=== PATIENT | male | born 1995 | race Caucasian/White ===

== ENCOUNTER 2020-09-12 13:59 | Observation (INO) | payer OTHER ==
[2020-09-12 14:23] LABS: Basophils % (A) 0 %; Eosinophils # (A) 0.3 k/uL (0-0.7); Eosinophils % (A) 3 %; HGB 16.1 gm/dL (13.0-17.5); Lymphocytes # (A) 0.9 k/uL (1.0-4.8); Lymphocytes % (A) 8 %; MCH 30.4 pg (25.0-35.0); MCHC 34.9 g/dL (31.0-37.0); MCV 86.9 fL (80.0-100.0); Mean Platelet Volume 7.3; Monocytes # (A) 0.8 k/uL (0-1.0); Monocytes % (A) 7 %; Neutrophils % (A) 81 %; Platelet Count 218 k/uL (150-450); WBC 11.1 k/uL (3.8-10.6)
[2020-09-12 14:37] LABS: Albumin 5.1 g/dL (3.5-5.0); Glucose 118 mg/dL (74-99); Total Protein 8.2 g/dL (6.3-8.2)
[2020-09-12 14:38] LABS: ALT 39 U/L (4-49); AST 28 U/L (17-59); African American GFR (CKD) >90 (>60 ml/min/1.73 sqM); Alkaline Phosphatase 70 U/L (38-126); Anion Gap 15 mmol/L; Blood Urea Nitrogen 8 mg/dL (9-20); Calcium 9.7 mg/dL (8.4-10.2); Carbon Dioxide 24 mmol/L (22-30); Chloride 104 mmol/L (98-107); Creatine Kinase 104 U/L (55-170); Magnesium 1.5 mg/dL (1.6-2.3); Non-African American GFR(CKD) >90 (>60 ml/min/1.73 sqM); Potassium 3.5 mmol/L (3.5-5.1); Sodium 143 mmol/L (137-145); Total Bilirubin 0.8 mg/dL (0.2-1.3)
[2020-09-12 14:43] LABS: D-Dimer 0.38 mg/L FEU (<0.60)
[2020-09-12 14:44] LABS: Partial Thromboplastin Time 24.7 sec (22.0-30.0); Prothrombin Time 10.3 sec (9.0-12.0)
--- NOTE | 2020-09-12 15:06 | XR ---
EXAMINATION TYPE: XR chest 1V portable DATE OF EXAM: 09/12/2020 COMPARISON: NONE HISTORY: Dyspnea TECHNIQUE: Single frontal view of the chest is obtained. FINDINGS: There are changes of pneumomediastinum. Air is present subcutaneous soft tissues over the upper chest and lower neck as well as in the mediastinum. There is no evident pneumothorax or pleural effusion. Cardiac mediastinal silhouette otherwise within normal limits. IMPRESSION: Pneumomediastinum.
[2020-09-12] MEDS ORDERED: cefTRIAXone IN SWFI 1,000 MG/10 ML SYRINGE IVP STA (15:17)
--- NOTE | 2020-09-12 15:36 | ED ---
SOB HPI - General Chief Complaint: Shortness of Breath Stated Complaint: trauma Time Seen by Provider: 09/12/20 14:00 Source: patient, EMS, RN notes reviewed Mode of arrival: EMS Limitations: no limitations - History of Present Illness Initial Comments: Is a 25-year-old male with a benign history other than asthma who states he had the onset of difficulty breathing last evening consistent with his usual asthma he states that prior to arrival by EMS however he coughed really hard and felt as if there was a water up in the left upper side of his anterior chest. He has some difficulty breathing along with this. No difficulty swallowing he's had fevers and sweats last night he states. No earache sore throat possibly some nasal congestion. No phlegm production when he coughed . He's never had anything quite like this before he is a nonsmoker no other medical problems. MD Complaint: shortness of breath, cough - Related Data Home Medications Medication Instructions Recorded Confirmed Albuterol Inhaler [Ventolin Hfa 1 - 2 puff INHALATION RT-Q4H PRN 09/12/20 09/12/20 Inhaler] guaiFENesin [Mucinex] 600 mg PO Q12H PRN 09/12/20 09/12/20 Allergies Allergy/AdvReac Type Severity Reaction Status Date / Time No Known Allergies Allergy Verified 09/12/20 14:44 Review of Systems ROS Statement: Those systems with pertinent positive or pertinent negative responses have been documented in the HPI. ROS Other: All systems not noted in ROS Statement are negative. Past Medical History Past Medical History: Asthma History of Any Multi-Drug Resistant Organisms: None Reported Past Surgical History: Adenoidectomy Additional Past Surgical History / Comment(s): Ankel and monahan surgery on 2019 Past Psychological History: No Psychological Hx Reported Smoking Status: Former smoker Past Alcohol Use History: None Reported Past Drug Use History: Marijuana General Exam - General Exam Comments Initial Comments: Is a well-developed asthenic appearing male who is awake alert oriented 3 Limitations: no limitations General appearance: alert, anxious Head exam: Present: atraumatic, normocephalic, normal inspection Eye exam: Present: normal appearance, PERRL, EOMI. Absent: scleral icterus, conjunctival injection, periorbital swelling ENT exam: Present: normal exam, mucous membranes moist, other (Evidence of somewhat of a higher pitched voice with nasal qualities) Neck exam: Present: normal inspection, full ROM, other (No stridor JVD or bruits there is however crepitation over the anterior lateral neck musculature consistent with subcutaneous emphysema.). Absent: tenderness, meningismus, lymphadenopathy Respiratory exam: Present: chest wall tenderness (Some minimal discomfort to palpation of the anterior upper left chest wall with some subcutaneous emphysema clinically evident. None currently on the right.), decreased breath sounds. Absent: respiratory distress, wheezes, rales, rhonchi, stridor Cardiovascular Exam: Present: normal rhythm, tachycardia, normal heart sounds. Absent: systolic murmur, diastolic murmur, rubs, gallop, clicks GI/Abdominal exam: Present: soft, normal bowel sounds. Absent: distended, tenderness, guarding, rebound, rigid Extremities exam: Present: normal inspection, full ROM, normal capillary refill. Absent: tenderness, pedal edema, joint swelling, calf tenderness Back exam: Present: normal inspection Neurological exam: Present: alert, oriented X3, CN II-XII intact Psychiatric exam: Present: normal affect, normal mood Skin exam: Present: warm, dry, intact, normal color. Absent: rash Course Vital Signs 09/12/20 09/12/20 09/12/20 14:05 14:19 15:09 Temperature 97.8 F Pulse Rate 119 H 119 H Respiratory 22 22 20 Rate Blood Pressure 135/94 119/94 O2 Sat by Pulse 98 95 Oximetry - Reevaluation(s) Reevaluation #1: 09/12/20 15:48 I did reevaluate patient several occasions he states he is more comfortable standing up but discomfort and breathing is getting no worse at this time. Reevaluation #2: 09/12/20 15:49 Patient denies smoking but he does Vape. He was cautioned about this Reevaluation #3: 09/12/20 15:50 Dr. Yepez as well as Dr. Moran did come the emergency department to see the patient. Medical Decision Making - Lab Data Result diagrams: 09/12/20 14:12 09/12/20 14:12 Lab Results 09/12/20 09/12/20 09/12/20 Range/Units 14:12 14:12 14:12 WBC 11.1 H (3.8-10.6) k/uL RBC 5.30 (4.30-5.90) m/uL Hgb 16.1 (13.0-17.5) gm/dL Hct 46.0 (39.0-53.0) % MCV 86.9 (80.0-100.0) fL MCH 30.4 (25.0-35.0) pg MCHC 34.9 (31.0-37.0) g/dL RDW 12.0 (11.5-15.5) % Plt Count 218 (150-450) k/uL MPV 7.3 Neutrophils % 81 % Lymphocytes % 8 % Monocytes % 7 % Eosinophils % 3 % Basophils % 0 % Neutrophils # 9.0 H (1.3-7.7) k/uL Lymphocytes # 0.9 L (1.0-4.8) k/uL Monocytes # 0.8 (0-1.0) k/uL Eosinophils # 0.3 (0-0.7) k/uL Basophils # 0.0 (0-0.2) k/uL PT 10.3 (9.0-12.0) sec INR 1.0 (<1.2) APTT 24.7 (22.0-30.0) sec D-Dimer 0.38 (<0.60) mg/L FEU Sodium 143 (137-145) mmol/L Potassium 3.5 (3.5-5.1) mmol/L Chloride 104 (98-107) mmol/L Carbon Dioxide 24 (22-30) mmol/L Anion Gap 15 mmol/L BUN 8 L (9-20) mg/dL Creatinine 0.87 (0.66-1.25) mg/dL Est GFR (CKD-EPI)AfAm >90 (>60 ml/min/1.73 sqM) Est GFR (CKD-EPI)NonAf >90 (>60 ml/min/1.73 sqM) Glucose 118 H (74-99) mg/dL Plasma Lactic Acid Gage (0.7-2.0) mmol/L Calcium 9.7 (8.4-10.2) mg/dL Magnesium 1.5 L (1.6-2.3) mg/dL Total Bilirubin 0.8 (0.2-1.3) mg/dL AST 28 (17-59) U/L ALT 39 (4-49) U/L Alkaline Phosphatase 70 (38-126) U/L Creatine Kinase 104 (55-170) U/L Troponin I (0.000-0.034) ng/mL NT-Pro-B Natriuret Pep pg/mL Total Protein 8.2 (6.3-8.2) g/dL Albumin 5.1 H (3.5-5.0) g/dL 09/12/20 09/12/20 09/12/20 Range/Units 14:12 14:12 14:12 WBC (3.8-10.6) k/uL RBC (4.30-5.90) m/uL Hgb (13.0-17.5) gm/dL Hct (39.0-53.0) % MCV (80.0-100.0) fL MCH (25.0-35.0) pg MCHC (31.0-37.0) g/dL RDW (11.5-15.5) % Plt Count (150-450) k/uL MPV Neutrophils % % Lymphocytes % % Monocytes % % Eosinophils % % Basophils % % Neutrophils # (1.3-7.7) k/uL Lymphocytes # (1.0-4.8) k/uL Monocytes # (0-1.0) k/uL Eosinophils # (0-0.7) k/uL Basophils # (0-0.2) k/uL PT (9.0-12.0) sec INR (<1.2) APTT (22.0-30.0) sec D-Dimer (<0.60) mg/L FEU Sodium (137-145) mmol/L Potassium (3.5-5.1) mmol/L Chloride (98-107) mmol/L Carbon Dioxide (22-30) mmol/L Anion Gap mmol/L BUN (9-20) mg/dL Creatinine (0.66-1.25) mg/dL Est GFR (CKD-EPI)AfAm (>60 ml/min/1.73 sqM) Est GFR (CKD-EPI)NonAf (>60 ml/min/1.73 sqM) Glucose (74-99) mg/dL Plasma Lactic Acid Gage 1.8 (0.7-2.0) mmol/L Calcium (8.4-10.2) mg/dL Magnesium (1.6-2.3) mg/dL Total Bilirubin (0.2-1.3) mg/dL AST (17-59) U/L ALT (4-49) U/L Alkaline Phosphatase (38-126) U/L Creatine Kinase (55-170) U/L Troponin I <0.012 (0.000-0.034) ng/mL NT-Pro-B Natriuret Pep 58 pg/mL Total Protein (6.3-8.2) g/dL Albumin (3.5-5.0) g/dL - Radiology Data Radiology results: report reviewed (I did review the imaging and reports subcu emphysema noted on both sides on the x-ray also a chest x-ray and CAT scan no evidence of pneumo-thorax at this time), image reviewed Critical Care Time Critical Care Time: Yes Total Critical Care Time: 37 Critical Care Time: This time does include initial presentation with history physical labs x-rays discussed with paramedics upon arrival were evaluation the patient responsive therapy discussion with the admitting physician as well as with Dr. Moran admission orders documentation the above Disposition Clinical Impression: Acute asthma exacerbation, Subcutaneous emphysema, Cough Disposition: ADMITTED IP TO THIS HOSP Condition: Fair Referrals: None,Stated [Primary Care Provider] - 1-2 days
--- NOTE | 2020-09-12 15:38 | CT ---
EXAMINATION TYPE: CT chest wo con DATE OF EXAM: 09/12/2020 COMPARISON: Chest x-ray from the same day. HISTORY: Coughing and shortness of breath. No traumatic injury per patient. CT DLP: 335.[address] of the chest was performed with lung and mediastinal window settings submitted. The la ck of contrast limits evaluation of the vascular, mediastinal and parenchymal structures including th e upper abdomen. LUNGS: The lungs are clear and free of infiltrate. No atelectasis. No pulmonary nodule or mass is de tected. No pleural effusion. No CT evidence of interstitial lung disease. MEDIASTINUM/LINDA: There is extensive pneumomediastinum with dissection into the neck and upper chest as well as the axillary regions and upper abdomen. There is no evidence for pneumothorax. Thoracic a philip is of normal caliber with limited evaluation given lack of contrast. The heart is not enlarged. No evidence for mediastinal mass. No lymph nodes greater than 1cm. UPPER ABDOMEN: No significant abnormality is seen. OTHER: No significant other abnormality. IMPRESSION: 1. Extensive pneumomediastinum as discussed above of uncertain etiology.
[2020-09-12] MEDS ORDERED: ONDANSETRON 4 MG/2 ML VIAL IVP PRN (15:53)
[2020-09-12] MEDS ORDERED: NALOXONE 0.4 MG/ML 1 ML VIAL IV PRN (15:53)
[2020-09-12] MEDS ORDERED: ACETAMINOPHEN TAB 325 MG TAB PO PRN (15:53)
[2020-09-12] MEDS ORDERED: guaiFENesin 600 MG TABLET.ER PO PRN (15:56)
[2020-09-12] MEDS: METOCLOPRAMIDE 5 MG/ML 2 ML VIAL IVP STA ×2 (15:59→16:01)
[2020-09-12] MEDS: methylPREDNISolone SOD SUCCI 125 MG/2 ML VIAL IV STA ×2 (16:00→16:01)
[2020-09-12] MEDS: SODIUM CHLORIDE 0.9% 1,000 ML IV SCH (16:02)
[2020-09-12] MEDS ORDERED: IPRATROPIUM-ALBUTEROL 3 ML NEB INHALATION STA (16:12)
--- NOTE | 2020-09-12 16:37 | P.CNPUL ---
History of Present Illness Consult date: 09/12/20 Reason for consult: dyspnea History of present illness: Is a 25-year-old male patient, his medical came into the emergency department having some worsening shortness of breath. He apparently was also having increased dyspnea on outpatient basis and he coughed hard and he felt air under his skin along the left neck area and this extended to the right. He came into the emergency department and chest x-ray showed no mediastinal and for clearance emphysema involving the neck area bilaterally. A CAT scan of the chest was ordered accordingly. Currently is on 2 L of oxygen by nasal cannula with a pulse of 98%. His breathing at the rate of 22 and he is afebrile. He is in sinus tachycardia. Note that his chest x-ray showed no evidence of any pneumothorax. The CAT scan of the chest showed extensive no mediastinal extending and dissecting into the neck and upper chest area and axillary region. There is no evidence of any pneumothorax. The patient admitted to smoke marijuana through a bong multiple times a day and he does deep inhalation. Doesn't utilize any tobacco.. He denies having any chest pain. His asthma has been essentially uneventful and the patient did not require any follow maintenance treatments or inhalers over the years. No previous hospitalization for asthma related complications. No other medical ALLERGIES. No pet ALLERGY. 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 Review of Systems Constitutional: Denies chills, Denies fever Eyes: denies as per HPI, denies blurred vision, denies bulging eye, denies decreased vision, denies diplopia, denies discharge, denies dry eye, denies irritation, denies itching, denies pain, denies photophobia, denies loss of peripheral vision, denies loss of vision, denies tunnel vision/blind spots Ears: deny: decreased hearing, ear discharge, earache, tinnitus Ears, nose, mouth and throat: Reports as per HPI Cardiovascular: Reports as per HPI, Reports decreased exercise tolerance Respiratory: Reports cough, Reports dyspnea, Reports wheezing Gastrointestinal: Reports as per HPI Genitourinary: Reports as per HPI Musculoskeletal: Reports as per HPI Musculoskeletal: absent: ankle pain, ankle stiffness, ankle swelling Integumentary: Reports as per HPI Neurological: Reports as per HPI Psychiatric: Reports as per HPI Endocrine: Reports as per HPI Hematologic/Lymphatic: Reports as per HPI Allergic/Immunologic: Reports as per HPI Past Medical History Past Medical History: Asthma History of Any Multi-Drug Resistant Organisms: None Reported Past Surgical History: Adenoidectomy Additional Past Surgical History / Comment(s): Ankel and monahan surgery on 2019 Past Psychological History: No Psychological Hx Reported Smoking Status: Former smoker Past Alcohol Use History: None Reported Past Drug Use History: Marijuana Medications and Allergies Home Medications Medication Instructions Recorded Confirmed Type RX: Albuterol Inhaler [Ventolin 1 - 2 puff INHALATION RT-Q4H PRN 09/12/2009/12 History Hfa Inhaler] guaiFENesin [Mucinex] 600 mg PO Q12H PRN 09/12/20 09/12/20 History Allergies Allergy/AdvReac Type Severity Reaction Status Date / Time No Known Allergies Allergy Verified 09/12/20 14:44 Physical Exam Vitals: Vital Signs Temp Pulse Resp BP Pulse Ox 09/12/20 14:19 22 09/12/20 14:05 97.8 F 119 H 22 135/94 98 Intake and Output 09/12/20 09/12/20 09/12/20 06:59 14:59 22:59 Other: Weight 81.647 kg The patient appeared well nourished and normally developed. Vital signs as documented. Head exam is unremarkable. No scleral icterus or corneal arcus noted. Neck is without jugular venous distension, thyromegaly, or carotid bruits. Carotid upstrokes are brisk bilaterally. There is some tenderness emphysema in the neck laterally both on the right than on the left side extending to his upper chest. Diminished breath sound bilaterally along with scattered expiratory wheezes without the lung cates bilaterally. Cardiac exam reveals the PMI to be normally sized and situated. Rhythm is regular. First and second heart sounds normal. No murmurs, rubs or gallops. Abdominal exam reveals normal bowel sounds, no masses, no organomegaly and no aortic enlargement. Extremities are nonedematous and both femoral and pedal pulses are normal.Examination of the skin revealed no evidence of significant rashes, suspicious appearing nevi or other concerning lesions.Neurologically, the patient is awake and alert and the patient does not have any focal neurological deficit. Cranial nerves are essentially intact. Results - Laboratory Findings CBC and BMP: 09/12/20 14:12 09/12/20 14:12 PT/INR, D-dimer PT 10.3 sec (9.0-12.0) 09/12/20 14:12 INR 1.0 (<1.2) 09/12/20 14:12 D-Dimer 0.38 mg/L FEU (<0.60) 09/12/20 14:12 Abnormal lab findings: Abnormal Labs 09/12/20 09/12/20 14:12 14:12 WBC 11.1 H Neutrophils # 9.0 H Lymphocytes # 0.9 L BUN 8 L Glucose 118 H Magnesium 1.5 L Albumin 5.1 H - Diagnostic Findings Chest x-ray: image reviewed CT scan - chest: image reviewed Assessment and Plan Plan: 1 acute asthma exacerbation 2 acute pneumomediastinum dissecting into the neck, upper chest, axilla, upper abdomen without evidence of pneumothorax. This is related to probably increase positive pressure within the thorax related to cough. 3 marijuana smoking 4 acute hypoxic respiratory failure currently on 2 L of oxygen by nasal cannula 5 sinus tachycardia Plan Admit to the floor Daily chest x-rays DuoNeb nebulized treatment every 6 hours [id number] Check Covid 19 by nasal swab IV Solu-Medrol IV Protonix Monitor the oxygenation Monitor subcutaneous emphysema and watch for development of any pneumothorax We'll continue to follow
[2020-09-12 17:24] LABS: Amphetamine Screen,Urine Not Detected (NotDetected); Barbiturate Screen,Urine Not Detected (NotDetected); Benzodiazepines Screen,Urine Not Detected (NotDetected); Cocaine Screen,Urine Not Detected (NotDetected); Methadone Screen, Urine Not Detected (NotDetected); Opiate Screen,Urine Not Detected (NotDetected); Oxycodone Screen, Urine Not Detected (NotDetected); Phencyclidine Screen,Urine Not Detected (NotDetected); Tricyclic Antidepressant,Urine Not Detected (NotDetected); Urn Cannabinoid Scrn Detected (NotDetected)
[2020-09-12] MEDS ORDERED: ALBUTEROL NEBULIZED 2.5 MG/3 ML INHALATION PRN (17:47)
--- NOTE | 2020-09-12 17:51 | P.HPIM ---
<Raul Montejo - Last Filed: 09/12/20 17:29> History of Present Illness H&P Date: 09/12/20 History of presenting illness: Patient is a 25-year-old male with a past medical history of asthma. Patient presented to [facility] with a chief complaint of shortness of breath. Patient reports he began having mild sinus congestion, postnasal drainage, sore throat, chills, subjective fever, dry nonproductive cough, and shortness of breath yesterday evening. Reports that his girlfriend has also recently been ill with these same symptoms and he assumed he either caught what she had and this was aggravating his asthma. Patient states that shortness of breath and cough persistently worsened throughout the night and he was unable to sleep despite trying to sleep upright in a recliner. He reports today he was in a coughing fit and suddenly felt as if he had something in his lungs became harder for him to breathe. Patient underwent evaluation in the emergency de partment. EKG revealing sinus tachycardia at 112 bpm with no signs of acute ischemia. Labs: CBC, CMP, coags, and d-dimer were unremarkable with the exception of mild leukocytosis with WBC count of 11.1. Chest x-ray and CT chest revealed extensive pneumomediastinum. Patient admitted under our services with consult to pulmonology. Upon assessment patient on 3 L O2 via nasal cannula with respirations 22 breaths per minute, regular, and unlabored. He reports that he continues to feel short of breath and has dry cough. He denies having a headache, lightheadedness, dizziness, chest pain or palpitations, abdominal pain, nausea, vomiting, or experiencing any numbness/tingling/swelling/weakness in his extremities. Patient denies cigarette smoking, but does admit to vaping, as well as smoking concentrated marijuana oil through a bong. Review of systems: Pertinent positives and negatives as discussed in HPI, a complete review of systems was performed and all other systems are negative. Physical exam: General: non toxic, no distress, appears at stated age Derm: warm, dry Head: atraumatic, normocephalic, symmetric Eyes: EOMI, no lid lag, anicteric sclera Mouth: no lip lesion, mucus membranes moist Cardiovascular: S1S2 reg, no murmur, positive posterior tibial pulse bilateral, Lungs: CTA bilateral, no rhonchi, no rales , no accessory muscle use Abdominal: soft, nontender to palpation, no guarding, no appreciable organomegaly Ext: no gross muscle atrophy, no edema, no contractures Neuro: CN II-XI grossly intact, no focal neuro deficits Psych: Alert, oriented, appropriate affect Assessment and Plan of Care: Acute asthma exacerbation -Pulmonology following, appreciate further recommendations. -Continue with supplemental oxygen. -Bronchodilator protocol with DuoNebs as needed for wheezing and/or shortness of breath. -Solu-Medrol 60 mg every 6 hours. -Guaifenesin 600 mg every 12 hours -Incentive spirometry Pneumomediastinum -Chest x-ray and CT chest revealed extensive pneumomediastinum. -Pulmonary following appreciate further recommendations. -Conservative management with close monitoring. -Continuous telemetry monitoring -Continue with supplemental oxygen. Use of marijuana oil through vaping and bong -Patient educated on the risks of continued use of smoking oils through a vape, bong, or via any other mechanism. Pt educated that continued inhalation of oils places him at significant risk for respiratory failure up to and including risks of . The patient is admitted with an anticipated less than 2 midnight stay for evaluation of acute asthma exacerbation and pneumomediastinum. CODE STATUS: Full code DVT prophylaxis: SCDs Discussed with: patient Anticipated discharge date: 1-[address]: Home A total of 40 minutes was spent on the care of this complex patient more than 50% of the time was spent in counseling and care coordination. Past Medical History Past Medical History: Asthma History of Any Multi-Drug Resistant Organisms: None Reported Past Surgical History: Adenoidectomy Additional Past Surgical History / Comment(s): Ankel and monahan surgery on 2019 Past Psychological History: No Psychological Hx Reported Smoking Status: Former smoker Past Alcohol Use History: None Reported Past Drug Use History: Marijuana Medications and Allergies Home Medications Medication Instructions Recorded Confirmed Type Albuterol Inhaler [Ventolin Hfa 1 - 2 puff INHALATION RT-Q4H PRN 09/12/20 09/12/20 History Inhaler] guaiFENesin [Mucinex] 600 mg PO Q12H PRN 09/12/20 09/12/20 History Allergies Allergy/AdvReac Type Severity Reaction Status Date / Time No Known Allergies Allergy Verified 09/12/20 14:44 Physical Exam Vitals: Vital Signs Temp Pulse Resp BP Pulse Ox 09/12/20 16:24 128 H 09/12/20 16:06 120 H 18 149/94 95 09/12/20 15:09 119 H 20 119/94 95 09/12/20 14:19 22 09/12/20 14:05 97.8 F 119 H 22 135/94 98 Intake and Output 09/12/20 09/12/20 09/12/20 06:59 14:59 22:59 Other: Weight 81.647 kg Results CBC & Chem 7: 09/12/20 14:12 09/12/20 14:12 Labs: Abnormal Lab Results - Last 24 Hours (Table) 09/12/20 09/12/20 Range/Units 14:12 14:12 WBC 11.1 H (3.8-10.6) k/uL Neutrophils # 9.0 H (1.3-7.7) k/uL Lymphocytes # 0.9 L (1.0-4.8) k/uL BUN 8 L (9-20) mg/dL Glucose 118 H (74-99) mg/dL Magnesium 1.5 L (1.6-2.3) mg/dL Albumin 5.1 H (3.5-5.0) g/dL <Nati Yepez - Last Filed: 09/12/20 18:01> Physical Exam Osteopathic Statement: *. No significant issues noted on an osteopathic structural exam other than those noted in the History and Physical/Consult. Vitals: Vital Signs Temp Pulse Resp BP Pulse Ox 09/12/20 16:52 97.8 F 96 18 162/102 95 09/12/20 16:38 130 H 09/12/20 16:24 128 H 09/12/20 16:06 120 H 18 149/94 95 09/12/20 15:09 119 H 20 119/94 95 09/12/20 14:19 22 09/12/20 14:05 97.8 F 119 H 22 135/94 98 Intake and Output 09/12/20 09/12/20 09/12/20 06:59 14:59 22:59 Other: # Voids 0 Weight 81.647 kg 81.647 kg Results CBC & Chem 7: 09/12/20 14:12 09/12/20 14:12 Labs: Abnormal Lab Results - Last 24 Hours (Table) 09/12/20 09/12/20 09/12/20 Range/Units 14:12 14:12 16:56 WBC 11.1 H (3.8-10.6) k/uL Neutrophils # 9.0 H (1.3-7.7) k/uL Lymphocytes # 0.9 L (1.0-4.8) k/uL BUN 8 L (9-20) mg/dL Glucose 118 H (74-99) mg/dL Magnesium 1.5 L (1.6-2.3) mg/dL Albumin 5.1 H (3.5-5.0) g/dL U Marijuana (THC) Screen Detected H (NotDetected) Assessment and Plan Assessment: Patient seen and evaluated by me independently. Patient was also seen by GIOVANNY, the original author of this note. I am in agreement with the subjective, physical exam, and assessment and plan as documented with the addition/changes of my exam and assessment below. Gen: awake, alert HEENT: normocephalic, atraumatic, good hearing acuity, moist mucous membranes Resp: good air exchange, breathing comfortably with no accessory muscle use, diffuse wheezing, crepitus of the upper chest, no stridor CVS: good distal perfusion x 4, regular rate and rhythm without murmurs GI: soft, NTTP, ND : no SPT, no CVAT, mckinney catheter not present MSK: no pitting edema, no clubbing Neuro: non-focal, moving all extremities Psych: cooperative, euthymic mood Plan: No changes to the document of plan
[2020-09-12] MEDS: IPRATROPIUM-ALBUTEROL 3 ML NEB INHALATION SCH (20:19)
[2020-09-12] MEDS: MAGNESIUM SULFATE-D5W PMX 1 GM in DEXTROSE/WATER 1 100ML.BAG IVPB SCH ×3 (21:22→23:58)
[2020-09-12] MEDS: methylPREDNISolone SOD SUCCI 125 MG/2 ML VIAL IV SCH (23:54)
[2020-09-13] MEDS: IPRATROPIUM-ALBUTEROL 3 ML NEB INHALATION SCH ×4 (02:12→21:22)
--- NOTE | 2020-09-13 06:11 | P.EN ---
A team was called and the patient due to increased work of breathing, with difficulty breathing and increased wheezing patient requesting more frequent breathing treatments 25-year-old male with asthma admitted for acute asthma exacerbation found to have pneumomediastinum. Patient was evaluated at bedside appears to have increased work of breathing is very short of breath talking breaking sentences, diffuse inspiratory and expiratory wheezing with prolonged expiratory phase and decreased breath sounds throughout. Patient was also found to have low magnesium and his blood work. Plan Patient was given stat breathing treatment Patient will be given 2 g of magnesium He seems to have improved after the breathing treatment, we will evaluate his oxygen requirement, and if he is requiring breathing treatments more frequent than every 4 hours then we'll move the patient to the ICU for availability of respiratory therapist to deliver breathing treatments every 1-2 hours if need ed., Patient requested to remain seated in the recliner as he feels better breathing sitting up in the recliner than laying down in bed. He continues to be on 3 L nasal cannula with oxygen saturation around 93-94% 30 minutes were spent delivering critical care service for this patient
[2020-09-13 06:16] LABS: Glucose,Whole Blood 132 mg/dL (75-99)
[2020-09-13] MEDS: methylPREDNISolone SOD SUCCI 125 MG/2 ML VIAL IV SCH ×4 (06:31→23:20)
[2020-09-13] MEDS: SODIUM CHLORIDE 0.9% 1,000 ML IV SCH (06:31)
--- NOTE | 2020-09-13 07:02 | XR ---
EXAMINATION TYPE: XR chest 2V DATE OF EXAM: 09/13/2020 COMPARISON: Chest x-ray CT chest from yesterday. HISTORY: Subcutaneous emphysema. TECHNIQUE: Frontal and lateral views of the chest are obtained. FINDINGS: Redemonstration of pneumomediastinum and subcutaneous emphysema in the bilateral supraclavi cular region with additional left greater than right thoracic involvement. Stable trace right apical pneumothorax. No new opacity or pleural effusion. The cardiac silhouette size remains within normal l imits. The osseous structures are intact. IMPRESSION: Worsening subcutaneous emphysema. Redemonstration of known pneumomediastinum. Trace righ t apical pneumothorax stable in retrospect from recent CT. No new infiltrate.
[2020-09-13] MEDS ORDERED: INSULIN ASPART (NovoLOG) 100 UNIT/ML VIAL SQ SCH (07:30)
[2020-09-13] MEDS ORDERED: PANTOPRAZOLE 40 MG/10 ML VIAL IV SCH (09:00)
--- NOTE | 2020-09-13 10:00 | CDI ---
Documentation Clarification Form Date: 09/13/2020 09:34:23 AM From: Torrie Parish RN, CCDS Admit Date: 09/12/2020 03:53:00 PM Patient Name: Santo Vega Visit Number: [id number] Discharge Date: ATTENTION: The Clinical Documentation Specialists (CDI) and [facility] Coding Staff appreciate your assistance in clarifying documentation. Please respond to the clarification below the line at the bottom and electronically sign. The CDI & [facility] Coding staff will review the response and follow-up if needed. Please note: Queries are made part of the Legal Health Record. If you have any questions, please contact the author of this message via ITS. Dr. Maksim Moran Asthma exacerbation is documented in the ED assessment and the pulmonary consult. Please render your opinion on the severity status of asthma exacerbation. History/risk factors: Asthma, Marijuana vaping Clinical Indicators: 25-year-old male cane to ED on 09/12 after having worsening shortness of breath. He admitted to smoking marijuana through [employer]. His asthma has been essentially uneventful and require no maintenance treatments or inhalers over the years per pulmonary consult. 09/12 CT chest: Extensive pneumomediastinum 09/12 Vital Signs: 135/94 119 22 97.8 98 2/L NS Treatment: Ventolin Nebulized QID PRN Albuterol/Ipratropium 3 ml Inhalation Q6 HRS Mucinex 600 MG PO Q12 HRS 0.9%NS @ 80 MLS/HR IV Solu-Medrol 125 MG IV Once Rocephin 1,000 MG IVP Once In your professional opinion, can you please further specify, Acute Asthma Exacerbation? Severity Mild intermittent Mild persistent Moderate persistent Severe persistent Other, please specify ____ Unable to determine Form or Type Cough variant Childhood Exercise induced bronchospasm Extrinsic allergic Idiosyncratic Intrinsic Late-onset Mixed Other, please specify____ Unable to determine (Last Revision: November 2017) Mild intermittent, Childhood MTDD
--- NOTE | 2020-09-13 11:18 | P.PN ---
Subjective Progress Note Date: 09/13/20 Is a 25-year-old male patient, his medical came into the emergency department having some worsening shortness of breath. He apparently was also having increased dyspnea on outpatient basis and he coughed hard and he felt air under his skin along the left neck area and this extended to the right. He came into the emergency department and chest x-ray showed no mediastinal and for clearance emphysema involving the neck area bilaterally. A CAT scan of the chest was ordered accordingly. Currently is on 2 L of oxygen by nasal cannula with a pulse of 98%. His breathing at the rate of 22 and he is afebrile. He is in sinus tachycardia. Note that his chest x-ray showed no evidence of any pneumothorax. The CAT scan of the chest showed extensive no mediastinal extending and dissecting into the neck and upper chest area and axillary region. There is no evidence of any pneumothorax. The patient admitted to smoke marijuana through a bong multiple times a day and he does deep inhalation. Doesn't utilize any tobacco.. He denies having any chest pain. His asthma has been essentially uneventful and the patient did not require any follow maintenance treatments or inhalers over the years. No previous hospitalization for asthma related complications. No other medical ALLERGIES. No pet ALLERGY. 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 09/13/2020 the patient is feeling better. His voice is still finding related to subcutaneous emphysema and pneumomediastinum. Repeat chest x-ray was done. I reviewed the chest x-ray. I see improvement in the subcutaneous emphysema in the neck area. He may have a less than 5% pneumothorax in the right apex. Hemodynamically the patient is stable. The patient is currently on IV Solu- Medrol. He is less bronchospastic and wheezy. He is on bronchodilators [id number]. Coronavirus 19 testing came back negative. Still having some sinus tachycardia. He is on oxygen 2 L per minute nasal cannula with a pulse ox above 90%. Objective - Vital Signs Vital signs: Vital Signs Temp 98.5 F 09/13/20 08:00 Pulse 100 09/13/20 08:55 Resp 20 09/13/20 08:00 BP 141/85 09/13/20 08:00 Pulse Ox 95 09/13/20 08:00 Intake & Output 09/12/20 09/13/20 09/13/20 18:59 06:59 18:59 Intake Total 500 580 0 Balance 500 580 0 Weight 81.647 kg 82.6 kg Intake: IV 480 Sodium Chloride 0.9% 1, 480 000 ml @ 80 mls/hr IV . [id number] GERARD Rx#:[id number] Intake, IV Titration 100 Amount Magnesium Sulfate-D5w Pmx 100 1 gm In Dextrose/Water 1 100ml.bag @ 100 mls/hr IVPB Q1H GERARD Rx#: [id number] Oral 500 0 Other: # Voids 0 - Exam The patient appeared well nourished and normally developed. Vital signs as documented. Head exam is unremarkable. No scleral icterus or corneal arcus noted. Neck is without jugular venous distension, thyromegaly, or carotid bruits. Carotid upstrokes are brisk bilaterally. There is some tenderness emphysema in the neck laterally both on the right than on the left side extending to his upper chest. Diminished breath sound bilaterally along with scattered expiratory wheezes without the lung cates bilaterally. Cardiac exam reveals the PMI to be normally sized and situated. Rhythm is regular. First and second heart sounds normal. No murmurs, rubs or gallops. Abdominal exam reveals normal bowel sounds, no masses, no organomegaly and no aortic enlargement. Extremities are nonedematous and both femoral and pedal pulses are normal.Examination of the skin revealed no evidence of significant rashes, s uspicious appearing nevi or other concerning lesions.Neurologically, the patient is awake and alert and the patient does not have any focal neurological deficit. Cranial nerves are essentially intact. - Labs CBC & Chem 7: 09/12/20 14:12 09/12/20 14:12 Labs: Abnormal Lab Results - Last 24 Hours (Table) 09/12/20 09/12/20 09/12/20 Range/Units 14:12 14:12 16:56 WBC 11.1 H (3.8-10.6) k/uL Neutrophils # 9.0 H (1.3-7.7) k/uL Lymphocytes # 0.9 L (1.0-4.8) k/uL BUN 8 L (9-20) mg/dL Glucose 118 H (74-99) mg/dL POC Glucose (mg/dL) (75-99) mg/dL Magnesium 1.5 L (1.6-2.3) mg/dL Albumin 5.1 H (3.5-5.0) g/dL U Marijuana (THC) Screen Detected H (NotDetected) 09/13/20 Range/Units 06:14 WBC (3.8-10.6) k/uL Neutrophils # (1.3-7.7) k/uL Lymphocytes # (1.0-4.8) k/uL BUN (9-20) mg/dL Glucose (74-99) mg/dL POC Glucose (mg/dL) 132 H (75-99) mg/dL Magnesium (1.6-2.3) mg/dL Albumin (3.5-5.0) g/dL U Marijuana (THC) Screen (NotDetected) Assessment and Plan Plan: 1 acute asthma exacerbation, improving 2 acute pneumomediastinum dissecting into the neck, upper chest, axilla, upper abdomen without evidence of pneumothorax. This is related to probably increase positive pressure within the thorax related to cough. Based on my review of the chest x-ray, the subcutaneous emphysema is either better or stable. There may be a very tiny less than 5% pneumothorax in the right apex. 3 marijuana smoking 4 acute hypoxic respiratory failure currently on 2 L of oxygen by nasal cannula 5 sinus tachycardia Plan The chest x-ray tomorrow DuoNeb nebulized treatment every 6 hours [id number] Check Covid 19 by nasal swab came back negative IV Solu-Medrol 60 mg every 6 hours IV Protonix Monitor the oxygenation Monitor subcutaneous emphysema and watch for development of any pneumothorax, clinically improving We'll continue to follow
--- NOTE | 2020-09-13 11:19 | P.PN ---
<Raul Montejo - Last Filed: 09/13/20 10:57> Subjective Progress Note Date: 09/13/20 Principal diagnosis: Acute asthma exacerbation secondary to smoking cannabis oil through a [facility] Course: Patient is a 25-year-old male with a past medical history of asthma. Patient presented to [facility] with a chief complaint of shortness of breath. Patient reports he began having mild sinus congestion, postnasal drainage, sore throat, chills, subjective fever, dry nonproductive cough, and shortness of breath yesterday evening. Reports that his girlfriend has also recently been ill with these same symptoms and he assumed he either caught what she had and this was aggravating his asthma. Patient states that shortness of breath and cough persistently worsened throughout the night and he was unable to sleep despite trying to sleep upright in a recliner. He reports today he was in a coughing fit and suddenly felt as if he had something in his lungs became harder for him to breathe. Patient underwent evaluation in the emergency department. EKG revealing sinus tachycardia at 112 bpm with no signs of acute ischemia. Labs: CBC, CMP, coags, and d-dimer were unremarkable with the exception of mild leukocytosis with WBC count of 11.1. Chest x-ray and CT chest revealed extensive pneumomediastinum. Patient admitted under our services with consult to pulmonology for acute asthma exacerbation requiring 3L oxygen supplementation accompanied by extensive pneumomediastinum. Patient was placed on Solu-Medrol 60 mg every 6 hours, guaifenesin 600 mg twice daily, and a bronchodilator protocol with DuoNeb nebs as needed for wheezing and/or shortness of breath. Physical exam: Patient seen and fully evaluated at the bedside. He was standing up in his room and pacing back and forth, he appeared anxious. He reports feeling much better today, but remains on 3 L O2 via nasal cannula and respirations remain tachypneic at 24 breaths per minute and he is tachycardic at 110 beats per minute. Lungs continue to have bilateral inspiratory and expiratory wheezes throughout all cates. Patient had an episode last night in which a rapid response was called secondary to increased work of breathing, patient was given a stat breathing treatment at that time. Repeat x-ray completed this morning revealing worsening subcutaneous of edema with redemonstration of known pneu momediastinum. Patient continues to deny having any headache, lightheadedness, dizziness, changes in vision or hearing, chest pain or palpitations, or experiencing any numbness/tingling/weakness in extremities. General: non toxic, no distress, appears at stated age Derm: warm, dry Head: atraumatic, normocephalic, symmetric Eyes: EOMI, no lid lag, anicteric sclera Mouth: no lip lesion, mucus membranes moist Cardiovascular: S1S2 reg, no murmur, positive posterior tibial pulse bilateral, Lungs: Respirations even, regular, and unlabored on 3 L O2 via nasal cannula. Patient with continued tachypnea and increased work of breathing without accessory muscle usage. He continues to have soft bilateral inspiratory and expiratory wheezes throughout all lung cates. Abdominal: soft, nontender to palpation, no guarding, no appreciable organomegaly Ext: no gross muscle atrophy, no edema, no contractures Neuro: CN II-XI grossly intact, no focal neuro deficits Psych: Alert, oriented, anxious affect Assessment and Plan of Care: Acute asthma exacerbation -Pulmonology following, appreciate further recommendations. -Initial chest x-ray and chest CT positive for extensive pneumomediastinum, repeat x-ray this morning revealing worsening subcutaneous emphysema with redemonstration of known pneumomediastinum with a trace right apical pneumothorax stable in retrospect from recent CT. -Continue with supplemental oxygen and wean as patient tolerates. -Bronchodilator protocol with DuoNebs as needed for wheezing and/or increased shortness of breath. -Continue Solu-Medrol 60 mg every 6 hours until further recommendations by pulmonology. -Continue Guaifenesin 600 mg every 12 hours -Encourage Incentive spirometry 10-15 times per hour while awake. Pneumomediastinum -Chest x-ray and CT chest revealed extensive pneumomediastinum, repeat x-ray this morning revealing worsening subcutaneous emphysema with redemonstration of known pneumomediastinum with a trace right apical pneumothorax stable in retrospect from recent CT. -Pulmonary following appreciate further recommendations. -Conservative management with close monitoring. -Continuous telemetry monitoring -Continue with supplemental oxygen. Use of marijuana oil through vaping and bong -Patient educated on the risks of continued use of smoking oils through a vape, bong, or via any other mechanism. Pt educated that continued inhalation of oils places him at significant risk for respiratory failure up to and including risks of . CODE STATUS: Full code DVT prophylaxis: SCDs Discussed with: patient and SUSAN Alatorre. Anticipated discharge date: pending clinical course Anticipated discharge place: Home A total of 40 minutes was spent on the care of this complex patient more than 50% of the time was spent in counseling and care coordination. Objective - Vital Signs Vital signs: Vital Signs Temp 98.5 F 09/13/20 08:00 Pulse 100 09/13/20 08:55 Resp 20 09/13/20 08:00 BP 141/85 09/13/20 08:00 Pulse Ox 95 09/13/20 08:00 Intake & Output 09/12/20 09/13/20 09/13/20 18:59 06:59 18:59 Intake Total 500 580 0 Balance 500 580 0 Weight 81.647 kg 82.6 kg Intake: IV 480 Sodium Chloride 0.9% 1, 480 000 ml @ 80 mls/hr IV . [id number] [facility]ERARD Rx#:[id number] Intake, IV Titration 100 Amount Magnesium Sulfate-D5w Pmx 100 1 gm In Dextrose/Water 1 100ml.bag @ 100 mls/hr IVPB Q1H GERARD Rx#: [id number] Oral 500 0 Other: # Voids 0 - Labs CBC & Chem 7: 09/12/20 14:12 09/12/20 14:12 Labs: Abnormal Lab Results - Last 24 Hours (Table) 09/12/20 09/12/20 09/12/20 Range/Units 14:12 14:12 16:56 WBC 11.1 H (3.8-10.6) k/uL Neutrophils # 9.0 H (1.3-7.7) k/uL Lymphocytes # 0.9 L (1.0-4.8) k/uL BUN 8 L (9-20) mg/dL Glucose 118 H (74-99) mg/dL POC Glucose (mg/dL) (75-99) mg/dL Magnesium 1.5 L (1.6-2.3) mg/dL Albumin 5.1 H (3.5-5.0) g/dL U Marijuana (THC) Screen Detected H (NotDetected) 09/13/20 Range/Units 06:14 WBC (3.8-10.6) k/uL Neutrophils # (1.3-7.7) k/uL Lymphocytes # (1.0-4.8) k/uL BUN (9-20) mg/dL Glucose (74-99) mg/dL POC Glucose (mg/dL) 132 H (75-99) mg/dL Magnesium (1.6-2.3) mg/dL Albumin (3.5-5.0) g/dL U Marijuana (THC) Screen (NotDetected) <Nati Yepez - Last Filed: 09/13/20 13:59> Objective - Vital Signs Vital signs: Vital Signs Temp 98.3 F 09/13/20 11:42 Pulse 102 H 09/13/20 12:35 Resp 16 09/13/20 11:42 BP 127/96 09/13/20 11:42 Pulse Ox 94 L 09/13/20 11:42 Intake & Output 09/12/20 09/13/20 09/13/20 18:59 06:59 18:59 Intake Total 500 580 240 Balance 500 580 240 Weight 81.647 kg 82.6 kg Intake: IV 480 Sodium Chloride 0.9% 1, 480 000 ml @ 80 mls/hr IV . [id number] GERARD Rx#:[id number] Intake, IV Titration 100 Amount Magnesium Sulfate-D5w Pmx 100 1 gm In Dextrose/Water 1 100ml.bag @ 100 mls/hr IVPB Q1H [facility] Rx#: [id number] Oral 500 240 Other: # Voids 0 4 - Labs CBC & Chem 7: 09/12/20 14:12 09/12/20 14:12 Labs: Abnormal Lab Results - Last 24 Hours (Table) 09/12/20 09/12/20 09/12/20 Range/Units 14:12 14:12 16:56 WBC 11.1 H (3.8-10.6) k/uL Neutrophils # 9.0 H (1.3-7.7) k/uL Lymphocytes # 0.9 L (1.0-4.8) k/uL BUN 8 L (9-20) mg/dL Glucose 118 H (74-99) mg/dL POC Glucose (mg/dL) (75-99) mg/dL Magnesium 1.5 L (1.6-2.3) mg/dL Albumin 5.1 H (3.5-5.0) g/dL U Marijuana (THC) Screen Detected H (NotDetected) 09/13/20 09/13/20 Range/Units 06:14 11:59 WBC (3.8-10.6) k/uL Neutrophils # (1.3-7.7) k/uL Lymphocytes # (1.0-4.8) k/uL BUN (9-20) mg/dL Glucose (74-99) mg/dL POC Glucose (mg/dL) 132 H 110 H (75-99) mg/dL Magnesium (1.6-2.3) mg/dL Albumin (3.5-5.0) g/dL U Marijuana (THC) Screen (NotDetected) Assessment and Plan Assessment: Patient seen and evaluated by GIOVANNY, the original author of this note. I am in agreement with the subjective, physical exam, and assessment and plan as documented with No changes to document of plan
[2020-09-13 12:02] LABS: Glucose,Whole Blood 110 mg/dL (75-99)
[2020-09-13 17:00] LABS: Glucose,Whole Blood 111 mg/dL (75-99)
[2020-09-14] MEDS: IPRATROPIUM-ALBUTEROL 3 ML NEB INHALATION SCH ×2 (01:31→08:28)
[2020-09-14] MEDS: methylPREDNISolone SOD SUCCI 125 MG/2 ML VIAL IV SCH (06:08)
[2020-09-14 07:53] VITALS: BP 139/92; RESP 16; TEMP 98.5
--- NOTE | 2020-09-14 08:00 | XR ---
EXAMINATION TYPE: XR chest 2V DATE OF EXAM: 09/14/2020 COMPARISON: 09/13/2020 HISTORY: 25-year-old male subcutaneous emphysema TECHNIQUE: PA and lateral views FINDINGS: Cardiomediastinal silhouette aorta, and pulmonary vasculature within normal limits. There is subcutan eous emphysema increased along the left hemithorax and now better seen along the base of the neck on both sides. Unable to exclude a trace 1 mm right apical pneumothorax, less conspicuous as compared to 09/13/2020. Residual pneumomediastinum. IMPRESSION: Residual pneumomediastinum and slightly increasing subcutaneous emphysema. Trace right apical pneumot horax has become less conspicuous.
[2020-09-14 08:42] VITALS: PULSE 100
--- NOTE | 2020-09-14 12:11 | P.DS ---
Providers Date of admission: 09/12/20 15:53 Expected date of discharge: 09/14/20 Attending physician: Nati Yepez MD Consults: 09/12/20 15:53 Consult Physician Stat Consulting Provider: Maksim Moran Consult Reason/Comments: Subcutaneous emphysema, asthma exacerbation Do you want consulting provider notified?: Already Contacted Primary care physician: Stated None Hospital Course: 1. Pneumomediastinum 2. Acute Asthma Exacerbation 3. Marijuana Abuse Patient is a 25-year-old male with a past medical history of asthma. Patient presented to [facility] with a chief complaint of shortness of breath. Patient underwent evaluation in the emergency department. EKG revealing sinus tachycardia at 112 bpm with no signs of acute ischemia. Labs: CBC, CMP, coags, and d-dimer were unremarkable with the exception of mild leukocytosis with WBC count of 11.1. Chest x-ray and CT chest revealed extensive pneumomediastinum. Patient admitted under our services with consult to pulmonology for acute asthma exacerbation requiring 3L oxygen supplementation accompanied by extensive pneumomediastinum. Patient was placed on Solu-Medrol 60 mg every 6 hours, guaifenesin 600 mg twice daily, and a bronchodilator protocol with DuoNeb nebs as needed for wheezing and/or shortness of breath. He improved to room air after 24 hours, and remained so after 48 hours in the hospital. He was discharged with appropriate inhalers and nebulizers, as well as steroid taper, and instructions to follow up with PCP and pulmonary medicine. I spent 31 minutes preparing this discharge. Assessment: Gen: awake, alert HEENT: normocephalic, atraumatic, good hearing acuity, moist mucous membranes Resp: good air exchange, breathing comfortably with no accessory muscle use, crepitus of the upper chest, no stridor CVS: good distal perfusion x 4, regular rate and rhythm without murmurs GI: soft, NTTP, ND : no SPT, no CVAT, mckinney catheter not present MSK: no pitting edema, no clubbing Neuro: non-focal, moving all extremities Psych: cooperative, euthymic mood Patient Condition at Discharge: Good Plan - Discharge Summary Discharge Rx Participant: No New Discharge Prescriptions: New predniSONE 0 mg PO DIRECTED 16 Days #40 tab Albuterol Inhaler [Ventolin Hfa Inhaler] 1 puff INHALATION RT-QID 30 Days #1 puff Albuterol Nebulized [Ventolin Nebulized] 2.5 mg INHALATION Q6H 30 Days #6 box Continue Albuterol Inhaler [Ventolin Hfa Inhaler] 1 - 2 puff INHALATION RT-Q4H PRN PRN Reason: Shortness Of Breath guaiFENesin [Mucinex] 600 mg PO Q12H PRN PRN Reason: Cold Symptoms Discharge Medication List Albuterol Inhaler [Ventolin Hfa Inhaler] 1 - 2 puff INHALATION RT-Q4H PRN 09/12/20 [History] guaiFENesin [Mucinex] 600 mg PO Q12H PRN 09/12/20 [History] Albuterol Inhaler [Ventolin Hfa Inhaler] 1 puff INHALATION RT-QID 30 Days #1 puff 09/14/20 [Rx] Albuterol Nebulized [Ventolin Nebulized] 2.5 mg INHALATION Q6H 30 Days #6 box 09/14/20 [Rx] predniSONE 0 mg PO DIRECTED 16 Days #40 tab 09/14/20 [Rx] Follow up Appointment(s)/Referral(s): Ruby Johnson NPC [Nurse Practitioner] - 1 Week Nakia Lau DO [REFERRING] - 1 Week Patient Instructions/Handouts: Asthma (DC)
--- NOTE | 2020-09-14 14:11 | P.PN ---
Subjective Progress Note Date: 09/14/20 Principal diagnosis: Acute asthma exacerbation, acute pneumomediastinum Is a 25-year-old male patient, his medical came into the emergency department having some worsening shortness of breath. He apparently was also having increased dyspnea on outpatient basis and he coughed hard and he felt air under his skin along the left neck area and this extended to the right. He came into the emergency department and chest x-ray showed no mediastinal and for clearance emphysema involving the neck area bilaterally. A CAT scan of the chest was ordered accordingly. Currently is on 2 L of oxygen by nasal cannula with a pulse of 98%. His breathing at the rate of 22 and he is afebrile. He is in sinus tachycardia. Note that his chest x-ray showed no evidence of any pneumothorax. The CAT scan of the chest showed extensive no mediastinal extending and dissecting into the neck and upper chest area and axillary region. There is no evidence of any pneumothorax. The patient admitted to smoke marijuana through a bong multiple times a day and he does deep inhalation. Doesn't utilize any tobacco.. He denies having any chest pain. His asthma has been essentially uneventful and the patient did not require any follow maintenance treatments or inhalers over the years. No previous hospitalization for asthma related complications. No other medical ALLERGIES. No pet ALLERGY. 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 09/13/2020 the patient is feeling better. His voice is still finding related to subcutaneous emphysema and pneumomediastinum. Repeat chest x-ray was done. I reviewed the chest x-ray. I see improvement in the subcutaneous emphysema in the neck area. He may have a less than 5% pneumothorax in the right apex. Hemodynamically the patient is stable. The patient is currently on IV Solu- Medrol. He is less bronchospastic and wheezy. He is on bronchodilators [id number]. Coronavirus 19 testing came back negative. Still having some sinus tachycardia. He is on oxygen 2 L per minute nasal cannula with a pulse ox above 90%. On 09/14/2020 patient seen in follow-up. He is calm and comfortable, he is ambulating about the room, room air pulse ox is 93%, he is breathing easier, no cough no congestion, today's chest x-ray has been reviewed showing residual pneumomediastinum and slightly increasing subcutaneous emphysema. His voice is slightly improved, his vital signs have been stable overnight, no fever or chills. He continues on IV steroids, and nebulized bronchodilators. He has significantly improved since admission, he is requesting to go home today. Objective - Vital Signs Vital signs: Vital Signs Temp 98.5 F 09/14/20 07:50 Pulse 100 09/14/20 08:41 Resp 16 09/14/20 07:50 BP 139/92 09/14/20 07:50 Pulse Ox 93 L 09/14/20 07:50 Intake & Output 09/13/20 09/14/20 09/14/20 18:59 06:59 18:59 Intake Total 480 500 Balance 480 500 Weight 80 kg Intake: Oral 480 500 Other: # Voids 4 2 1 - Exam GENERAL EXAM: Alert, very pleasant, 25-year-old white male, comfortable in no apparent distress. HEAD: Normocephalic/atraumatic. EYES: Normal reaction of pupils, equal size. Conjunctiva pink, sclera white. NOSE: Clear with pink turbinates. Patient has subcutaneous emphysema in the neck laterally, more on the right side compared to the left side extending to his upper chest THROAT: No erythema or exudates. NECK: No masses, no JVD, no thyroid enlargement, no adenopathy. CHEST: No chest wall deformity. Symmetrical expansion. LUNGS: Equal air entry with no crackles, wheeze, rhonchi or dullness. CVS: Regular rate and rhythm, normal S1 and S2, no gallops, no murmurs, no rubs ABDOMEN: Soft, nontender. No hepatosplenomegaly, normal bowel sounds, no guarding or rigidity. EXTREMITIES: No clubbing, no edema, no cyanosis, 2+ pulses and upper and lower extremities. MUSCULOSKELETAL: Muscle strength and tone normal. SPINE: No scoliosis or deformity SKIN: No rashes CENTRAL NERVOUS SYSTEM: Alert and oriented -3. No focal deficits, tone is normal in all 4 extremities. PSYCHIATRIC: Alert and oriented -3. Appropriate affect. Intact judgment and insight. - Labs CBC & Chem 7: 09/12/20 14:12 09/12/20 14:12 Labs: Abnormal Lab Results - Last 24 Hours (Table) 09/13/20 Range/Units 16:55 POC Glucose (mg/dL) 111 H (75-99) mg/dL Microbiology - Last 24 Hours (Table) 09/12/20 16:16 Blood Culture - Preliminary Blood No Growth after 24 hours Assessment and Plan Plan: Assessment: 1 acute asthma exacerbation, improving 2 acute pneumomediastinum dissecting into the neck, upper chest, axilla, upper abdomen without evidence of pneumothorax. This is related to probably increase positive pressure within the thorax related to cough. Based on my review of the chest x-ray, the subcutaneous emphysema is either better or stable. There may be a very tiny less than 5% pneumothorax in the right apex. 3 marijuana smoking 4 acute hypoxic respiratory failure currently on 2 L of oxygen by nasal cannula 5 sinus tachycardia Plan: Patient has remained stable since admission, subcutaneous emphysema remains, slightly improved, his voice is still muffled, but has not worsened, he is breathing comfortably, he is on room air, he is tolerating ambulation, good air entry bilaterally, no significant cough or congestion. No chest pain. Patient is stable for discharge home today on the prednisone taper, albuterol inhaler and breathing treatments. He can follow-up with Dr. Johnson in the office next week I performed a history & physical examination of the patient and discussed their management with my nurse practitioner, Arline Odom. I reviewed the nurse practitioner's note and agree with the documented findings and plan of care. Lung sounds are positive for diminished breath sounds. The findings and the impression was discussed with the patient. I attest to the documentation by the nurse practitioner. Time with Patient: Less than 30
== END 2020-09-14 16:52 | disposition home or self-care (01) ==
LOC: EC 13:59 → INTOOBSV 15:53 → 3SCARD 15:53 → UNDODISIN 09-14 16:52
PROVIDERS: ADMIT Internal Medicine; ATTEND Internal Medicine
DX: J45.21 Mild intermittent asthma with (acute) exacerbation (principal); J96.01 Acute respiratory failure with hypoxia; J98.2 Interstitial emphysema; F12.10 Cannabis abuse, uncomplicated; R00.0 Tachycardia, unspecified; Z20.822 Contact with and (suspected) exposure to COVID-19; E83.42 Hypomagnesemia; Z98.890 Other specified postprocedural states; Z79.899 Other long term (current) drug therapy; Z87.891 Personal history of nicotine dependence
CPT/HCPCS: 96376 ×3; 96361 ×2; 96365; 96366; 96375; 99291; 36415; 94640 ×5; 94760; 93005; 85379; 83880; 80053; 82550; 83605; 83735; 84484; 85025; 85610; 85730; 87040; 80306; 87635; 87636; 71045; 71046 ×2; 71250; G0378 ×3; J2930 ×3; J0696; J3475; 96374